=== PATIENT | male | born 1995 | race Asian ===

== ENCOUNTER → 2022-04-12 | Outpatient (REF) | payer OTHER | LOC: M LAB REF 16:25 | PROVIDERS: ATTEND Otolaryngology | DX: E04.1 Nontoxic single thyroid nodule (principal) ==

== ENCOUNTER 2022-06-14 09:07 | Inpatient (IN) | payer OTHER ==
[~2022-06-14] VITALS: Ht 167.6 cm; Wt 91.2 kg
[~2022-06-14 09:07] MED LIST: dexameTHASONE 4 MG/ML 1ML VIAL (J1100 PER 1MG) IV ONE
[2022-06-14] MEDS ORDERED: LR 1,000 ML IV SCH (10:00)
[2022-06-14] MEDS ORDERED: ONDANSETRON 4MG 2ML VIAL As Ordered ONE ×2 (12:02→18:24)
[2022-06-14] MEDS ORDERED: KETOROLAC 60MG 2ML VIAL As Ordered ONE (12:02)
[2022-06-14] MEDS ORDERED: propofoL 200 MG/20 ML VIAL As Ordered ONE ×2 (12:02→17:19)
[2022-06-14] MEDS ORDERED: ROCURONIUM BROMIDE 50 MG/5 ML VIAL As Ordered ONE (12:02)
[2022-06-14] MEDS ORDERED: dexameTHASONE 4 MG/ML 1ML VIAL (J1100 PER 1MG) As Ordered ONE (12:02)
[2022-06-14] MEDS ORDERED: fentaNYL 100 MCG/2 ML INJECTION As Ordered ONE ×2 (12:02→14:22)
[2022-06-14] MEDS ORDERED: LIDOCAINE 2% 100MG/5ML SDV (FOR ANES.) As Ordered ONE (12:02)
[2022-06-14] MEDS ORDERED: MIDAZOLAM INJ 2MG/2ML VIAL (J2250 PER 1MG) As Ordered ONE (12:02)
[2022-06-14] MEDS ORDERED: LIDOCAINE W/EPINEPHRINE 1% 20ML VIAL As Ordered ONE (12:08)
[2022-06-14] MEDS ORDERED: LABETALOL 100MG/20ML VIAL As Ordered ONE (13:09)
[2022-06-14 14:00] VITALS: BP 136/55
[2022-06-14] MEDS ORDERED: ACETAMINOPHEN 1000MG 100ML IV BAG As Ordered ONE (17:33)
[2022-06-14] MEDS ORDERED: HYDROmorphone HCL 2MG/ML 1ML VIAL As Ordered ONE (17:55)
[2022-06-14] MEDS ORDERED: oxyCODONE 5MG TAB PO PRN (18:35)
[2022-06-14] MEDS ORDERED: fentaNYL 100 MCG/2 ML INJECTION IV PRN (18:35)
[2022-06-14] MEDS ORDERED: MORPHINE 2 MG/ML 1ML VIAL IV PRN (18:35)
[2022-06-14] MEDS ORDERED: ONDANSETRON 4MG 2ML VIAL IV PRN (18:35)
[2022-06-14] MEDS ORDERED: ACETAMINOPHEN TAB 650MG DOSE (2X325MG) PO PRN (19:10)
[2022-06-14 19:33] LABS: BASO % 0.1 % (0.0-1.0); HEMATOCRIT 40.5 % (42.0-52.0); HEMOGLOBIN 13.4 g/dl (13.5-17.5); LYMPH # 1.2 10^3/uL (1.5-5.0); LYMPH % 6.9 % (24.0-44.0); MEAN CORPUSCULAR HEMOGLOBIN 29.5 pg (27.0-33.0); MEAN CORPUSCULAR HGB CONC 33.1 g/dl (32.0-36.5); MONO # 0.2 10^3/uL (0.0-0.8); MONO % 1.1 % (2.0-8.0); NEUTROPHILS # 15.3 10^3/uL (1.5-8.5); NEUTROPHILS % 91.5 % (36.0-66.0); PLATELET COUNT, AUTOMATED 365 10^3/uL (150-450); RED BLOOD COUNT 4.55 10^6/uL (4.30-6.10); WHITE BLOOD COUNT 16.7 10^3/uL (4.0-10.0)
[2022-06-14 19:44] LABS: BLOOD UREA NITROGEN 18 MG/DL (9-23); CARBON DIOXIDE LEVEL 18 MMOL/L (20-31); CHLORIDE LEVEL 106 MMOL/L (98-107); CREATININE FOR GFR 1.09 MG/DL (0.70-1.30); GLOMERULAR FILTRATION RATE > 60.0 (>60); GLUCOSE, FASTING 174 MG/DL (60-100); SODIUM LEVEL 140 MMOL/L (136-145)
[2022-06-14 20:10] VITALS: BP 155/87
[2022-06-14 20:40] VITALS: BP 156/92
[2022-06-14 21:10] VITALS: BP 160/93
[2022-06-14] MEDS ORDERED: HOME MED LIST COMPLETE! XX SCH (21:50)
[2022-06-14 22:00] VITALS: BP 136/78
[2022-06-14] MEDS: NS 1,000 ML IV SCH (22:18)
[2022-06-14 23:00] VITALS: BP 148/86
[2022-06-15] VITALS: BP 122/65
[2022-06-15 01:00] VITALS: BP 146/88
[2022-06-15] MEDS ORDERED: HEPARIN SOD (PORCINE) 5000UNITS/ML 1ML VIAL/SYRINGE SC SCH ×2 (06:00→21:00)
[2022-06-15 06:22] LABS: HEMATOCRIT 37.5 % (42.0-52.0); HEMOGLOBIN 12.5 g/dl (13.5-17.5); MEAN CORPUSCULAR HEMOGLOBIN 29.5 pg (27.0-33.0); MEAN CORPUSCULAR HGB CONC 33.3 g/dl (32.0-36.5); MEAN CORPUSCULAR VOLUME 88.4 fl (80.0-96.0); PLATELET COUNT, AUTOMATED 315 10^3/uL (150-450); RED BLOOD COUNT 4.24 10^6/uL (4.30-6.10); WHITE BLOOD COUNT 12.9 10^3/uL (4.0-10.0)
[2022-06-15 06:45] LABS: ALBUMIN 3.8 G/DL (3.2-5.2); ALKALINE PHOSPHATASE 99 U/L (46-116); ALT/SGPT 47 U/L (7.0-40); AST/SGOT 55 U/L (<34); BILIRUBIN,TOTAL 0.6 MG/DL (0.3-1.2); BLOOD UREA NITROGEN 15 MG/DL (9-23); CALCIUM LEVEL 8.7 MG/DL (8.5-10.1); CARBON DIOXIDE LEVEL 24 MMOL/L (20-31); CHLORIDE LEVEL 105 MMOL/L (98-107); CREATININE FOR GFR 0.72 MG/DL (0.70-1.30); GLOMERULAR FILTRATION RATE > 60.0 (>60); GLUCOSE, FASTING 127 MG/DL (60-100); POTASSIUM SERUM 4.4 MMOL/L (3.5-5.1); SODIUM LEVEL 140 MMOL/L (136-145); TOTAL PROTEIN 6.3 G/DL (5.7-8.2)
[2022-06-15] MEDS: NS 1,000 ML IV SCH (08:40)
[2022-06-15 10:00] VITALS: BP 148/88
[2022-06-15 14:00] VITALS: BP 151/91
[2022-06-15] MEDS ORDERED: LEVOTHYROXINE 150MCG TABLET (0.15MG) PO ONE (17:35)
[2022-06-15] MEDS ORDERED: SYNT150T PO (18:23)
[2022-06-15] MEDS ORDERED: ACET-897 PO (18:23)
== END 2022-06-15 19:02 | disposition home or self-care (01) | DRG 627 ==
LOC: M SDC 09:07 → M ED INP 19:07 → M MSPAV 20:06
PROVIDERS: ADMIT Family Medicine; ATTEND Internal Medicine Nephrology
PROC: 0GTK0ZZ Resection of Thyroid Gland, Open Approach (ICD-10-PCS; principal; 2022-06-14 11:30)
DX: C73 Malignant neoplasm of thyroid gland (principal)

== ENCOUNTER → 2022-07-18 | Outpatient (CLI) | payer OTHER ==
[~2022-07-18] MED LIST changes: +ACET-897 PO; +SYNT150T PO; -dexameTHASONE 4 MG/ML 1ML VIAL (J1100 PER 1MG) IV ONE
[2022-07-18 08:56] LABS: PTH INTACT 41.6 PG/ML (18.5-88.0)
[2022-07-18 09:00] LABS: FREE T3 3.1 PG/ML (2.3-4.2); FREE T4 1.58 NG/DL (0.89-1.76); THYROID STIMULATING HORMONE 8.866 uIU/ML (0.55-4.78)
== END ==
LOC: M LAB 08:05
PROVIDERS: ATTEND Otolaryngology
DX: C73 Malignant neoplasm of thyroid gland (principal)

== ENCOUNTER → 2022-07-26 | Outpatient (CLI) | payer OTHER ==
[2022-07-26 14:07] LABS: FREE T4 1.71 NG/DL (0.89-1.76); THYROID STIMULATING HORMONE 3.704 uIU/ML (0.55-4.78)
[2022-07-26 14:08] LABS: THYROGLOBULIN ANTIBODY < 15.0 U/ML (<60.0)
[2022-07-28 12:08] LABS: THRYOGLOBULIN ANTIBODIES (ATA) < 1.0 IU/mL (0.0-0.9); THYROGLOBULIN QUANTITATIVE 0.4 ng/mL (1.4-29.2)
== END ==
LOC: M PLALAB 10:35
PROVIDERS: ATTEND Nurse Practitioner Family
DX: E89.0 Postprocedural hypothyroidism (principal); C73 Malignant neoplasm of thyroid gland

== ENCOUNTER → 2022-10-16 | Outpatient (CLI) | payer OTHER ==
[2022-10-16 20:38] LABS: FREE T4 1.84 NG/DL (0.89-1.76); THYROID STIMULATING HORMONE 0.981 uIU/ML (0.55-4.78)
== END ==
LOC: M PLALAB 14:50
PROVIDERS: ATTEND Internal Medicine Endocrinology, Diabetes & Metabolism
DX: E89.0 Postprocedural hypothyroidism (principal)

== ENCOUNTER → 2022-11-30 | Outpatient (CLI) | payer OTHER ==
[~2022-11-30] MED LIST changes: +METHACHOLINE KIT INH ONE
== END ==
LOC: M CARPUL 13:59
PROVIDERS: ATTEND Internal Medicine Pulmonary Disease
DX: R06.00 Dyspnea, unspecified (principal)
CPT/HCPCS: 94070; J7674

== ENCOUNTER → 2023-02-14 | Outpatient (CLI) | payer OTHER ==
[~2023-02-14] MED LIST changes: -METHACHOLINE KIT INH ONE
[2023-02-14 16:09] LABS: THYROID STIMULATING HORMONE 5.465 uIU/ML (0.55-4.78)
[2023-02-14 16:13] LABS: FREE T4 1.19 NG/DL (0.89-1.76)
== END ==
LOC: M PLALAB 14:45
PROVIDERS: ATTEND Nurse Practitioner Family
DX: E89.0 Postprocedural hypothyroidism (principal); C73 Malignant neoplasm of thyroid gland

== ENCOUNTER → 2023-03-12 | Outpatient (CLI) | payer OTHER | LOC: M RAD 13:47 | PROVIDERS: ATTEND Nurse Practitioner Family | DX: C73 Malignant neoplasm of thyroid gland (principal) ==

== ENCOUNTER → 2023-04-27 | Outpatient (CLI) | payer OTHER ==
[2023-04-27 16:21] LABS: FREE T4 1.55 NG/DL (0.89-1.76)
[2023-04-27 16:23] LABS: THYROID STIMULATING HORMONE 0.238 uIU/ML (0.55-4.78)
== END ==
LOC: M PLALAB 13:58
PROVIDERS: ATTEND Nurse Practitioner Family
DX: E89.0 Postprocedural hypothyroidism (principal)

== ENCOUNTER → 2023-06-25 | Outpatient (CLI) | payer OTHER ==
[2023-06-25 16:18] LABS: THYROID STIMULATING HORMONE 0.354 uIU/ML (0.55-4.78)
[2023-06-25 16:19] LABS: FREE T4 1.7 NG/DL (0.89-1.76)
== END ==
LOC: M PLALAB 14:51
PROVIDERS: ATTEND Nurse Practitioner Family
DX: E89.0 Postprocedural hypothyroidism (principal)

== ENCOUNTER → 2023-10-26 | Outpatient (CLI) | payer OTHER ==
[2023-10-26 16:13] LABS: FREE T4 1.97 NG/DL (0.89-1.76)
[2023-10-26 16:17] LABS: THYROGLOBULIN ANTIBODY < 15.0 U/ML (<60.0)
== END ==
LOC: M PLALAB 13:58
PROVIDERS: ATTEND Nurse Practitioner Family
DX: E89.0 Postprocedural hypothyroidism (principal); C73 Malignant neoplasm of thyroid gland

== ENCOUNTER → 2024-02-04 | Outpatient (CLI) | payer OTHER ==
[2024-02-04 16:16] LABS: FREE T4 1.37 NG/DL (0.89-1.76)
[2024-02-04 16:17] LABS: THYROID STIMULATING HORMONE 16.408 uIU/ML (0.55-4.78)
== END ==
LOC: M PLALAB 11:30
PROVIDERS: ATTEND Nurse Practitioner Family
DX: E89.0 Postprocedural hypothyroidism (principal)